=== PATIENT | male | born 1955 | race Caucasian/White ===

== ENCOUNTER 2021-10-18 06:07 | Inpatient (IN) | payer MEDICARE, MEDICAID ==
[2021-10-06 14:27] LABS: BASOPHILS % (AUTO) 0.7 % (0-1); EOSINOPHILS # (AUTO) 0.1 X10'3 (0-0.9); EOSINOPHILS % (AUTO) 1.7 % (0-6); LYMPHOCYTES # (AUTO) 1.6 X10'3 (1.1-4.8); LYMPHOCYTES % (AUTO) 34.1 % (21-51); MEAN CORPUSCULAR HEMOGLOBIN 30.7 PG (27.0-31.0); MEAN CORPUSCULAR HGB CONC 33.9 g/dL (33.0-36.5); MEAN CORPUSCULAR VOLUME 90.6 FL (78-98); MEAN PLATELET VOLUME 7.8 FL (7.4-10.4); MONOCYTES # (AUTO) 0.4 X10'3 (0-0.9); NEUTROPHILS # (AUTO) 2.5 X10'3 (1.8-7.7); NEUTROPHILS % (AUTO) 54.5 % (42-75); PRE OP HEMATOCRIT 43.4 % (42.0-52.0); PRE OP HEMOGLOBIN 14.7 g/dL (14.0-17.9); PRE OP PLATELET COUNT 189 X10'3 (140-440); RED BLOOD COUNT 4.79 X10'6 (4.70-6.10); RED CELL DISTRIBUTION WIDTH 14.7 % (11.5-14.5)
[2021-10-06 14:47] LABS: ALBUMIN 3.6 G/DL (3.4-5.0); ALBUMIN/GLOBULIN RATIO 0.9 (1.1-1.5); ALKALINE PHOSPHATASE 87 IU/L (46-116); BLOOD UREA NITROGEN 18 MG/DL (7-18); BUN/CREATININE RATIO 13.6 (5.4-32.0); CHLORIDE 104 MMOL/L (99-107); CREATININE 1.32 MG/DL (0.60-1.10); PRE OP ALT 25 U/L (30-65); PRE OP ANION GAP 12 (8-16); PRE OP AST 19 U/L (10-37); PRE OP BILIRUB, TOTAL 0.4 MG/DL (0.0-1.0); PRE OP GLUCOSE 90 MG/DL (70-104); PRE OP POTASSIUM 4.3 MMOL/L (3.4-5.1); PRE OP SODIUM 139 MMOL/L (135-145); TOTAL CARBON DIOXIDE 23.4 MMOL/L (24-32); TOTAL PROTEIN 7.5 G/DL (6.4-8.2); eGFR 54 ML/MIN
[~2021-10-18] VITALS: Ht 172.7 cm; Wt 92.6 kg
[2021-10-18] VITALS (16 sets, daily range): BP systolic 107–165; BP diastolic 51–86
[~2021-10-18 06:07] MED LIST: ALBU8HFA PO; BACL10TA2 PO; DOCU-170 PO; GABA300C PO; HYDR-3686 PO; HYDR-3972 PO; LEVO300T2 PO; TIOT18CA3 INH; TRAZ-251 PO; ceFAZolin inj. 2,000 MG in dextrose 5%-water 100 ML IV ONE; famotidine 20mg tablet PO ONE; ringers solution, lacted 1,000 ML IV SCH; tranexamic acid 650mg tablet PO ONE; vancomycin 1,500 MG in NS 300ml IV soln IV ONE
--- NOTE | 2021-10-18 06:30 | NUR ---
PT PREPARED FOR SURGERY. PT STATED HE DID SMOKE THIS MORNING BEFORE COMING TO THE HOSPITAL. PT IS VERY ANXIOUS AND COMPLAINS OF RIGHT SHOULDER PAIN OF A 7 PREOP. PT SAID HE DID REVIEW THE EDUCATIONAL DATA ON SHOULDER REPLACEMENT AND HAS NO QUESTIONS. HE USED THE HIBACLESN SOAP FOR 5 DAYS AND THE OINTMENT IN HIS NOSE FOR 5 DAYS. HE SAW HIS SURGEON ON MONDAY AND THEY REVIEWED HIS mrsa POSITIVE SCREENING AND THE WOUND ARE HIS ARM. PT HAS A SMALL CIRCULAR SCAB ON THE OPERATIVE ARM. AWARE. PT REQUESTING MEDS FOR NERVES. AWAITING ANESTHESIA. PT IS UNABLE TO LIFT RIGHT ARM. LIMITED MOBILITY IN RIGHT SHOULDER. CIRCULATION TO BOTH ARMS IS GOOD, PINK WARM AND DRY. RADIAL PULSES ARE PRESENT +2 BILATERALLY. DIRECTOR OF KNOWLEDGE MANAGEMENT ARE EQUAL BILATERALLY.
[2021-10-18] MEDS ORDERED: ketorolac trometh. 30mg/ml inj. ONE (06:41)
[2021-10-18] MEDS ORDERED: ROPIVAcaine 0.5% (5mg/ml) 30ml vial ONE ×2 (06:41→11:45)
[2021-10-18] MEDS ORDERED: midazolam 1 mg/ML 2ml injection ONE ×2 (08:25→08:38)
[2021-10-18] MEDS ORDERED: ondansetron/PF 4mg/2ml inj ONE (08:25)
[2021-10-18] MEDS ORDERED: meperidine/PF 25mg/ml syringe ONE (08:25)
[2021-10-18] MEDS ORDERED: fentaNYL/PF 50MCG/1 ML 2ML syringe ONE (08:38)
[2021-10-18] MEDS ORDERED: ringers solution, lacted 1,000 ML IV SCH (09:35)
[2021-10-18] MEDS ORDERED: ROPIVAcaine 0.2%/PF PUMP/bolus 545 ML INTERSCALE SCH (09:35)
[2021-10-18] MEDS ORDERED: ondansetron/PF 4mg/2ml inj IV PRN ×2 (09:35→11:10)
[2021-10-18] MEDS ORDERED: morphine 2 MG/ML inj. syringe IV PRN (09:35)
[2021-10-18] MEDS ORDERED: meperidine/PF 25mg/ml syringe IV PRN ×3 (09:35)
[2021-10-18] MEDS ORDERED: ROPIVAcaine 0.2% (10 MG/5 ML) BOLUS INJECTION INTERSCALE PRN (09:35)
[2021-10-18] MEDS ORDERED: proCHLORperazine 10 MG/2 ml inj IV PRN (09:35)
[2021-10-18] MEDS ORDERED: morphine 4 MG/ML inj SYRINge IV PRN (09:35)
[2021-10-18] MEDS ORDERED: ketamine 50mg/5ml syringe ONE (10:12)
--- NOTE | 2021-10-18 10:49 | NUR ---
Received from OR via , accompanied by Anesthesiologist DR MOELLER and report given by Anesthesiolgist.AWAKENS TO VOICE. VITALS STABLE. DRESSING DI. COLIN PAIN. RUE IN A SIMP,E SLING. FINGERS WARM AND PINK.
[2021-10-18] MEDS ORDERED: bisacodyl 10mg suppository rectal RC PRN (11:10)
[2021-10-18] MEDS ORDERED: naloxone 0.4 mg/ml inj IV PRN (11:10)
[2021-10-18] MEDS ORDERED: HYDROmorphone 1 mg/ml syringe IV PRN (11:10)
[2021-10-18] MEDS ORDERED: docusate sod 100mg capsule PO PRN (11:10)
[2021-10-18] MEDS ORDERED: HYDROmorphone inj. 0.5 MG/0.5 ML DISP.SYRIN IV PRN (11:10)
[2021-10-18] MEDS ORDERED: hydrOXYzine 25 MG tablet PO PRN (11:10)
[2021-10-18] MEDS ORDERED: baclofen 10mg tablet PO PRN (11:10)
[2021-10-18] MEDS ORDERED: diphenhydrAMINE 25mg capsule PO PRN ×2 (11:10)
[2021-10-18] MEDS ORDERED: oxyCODONE IR 5mg (immed. release) tablet PO PRN (11:10)
[2021-10-18] MEDS ORDERED: magnesium hydroxide 30ml (MOM) UD suspension PO PRN (11:10)
[2021-10-18] MEDS ORDERED: acetaminophen 325mg tablet PO PRN (11:10)
[2021-10-18] MEDS ORDERED: albuterol 2.5 MG/3 ML nebule NEB PRN (11:40)
--- NOTE | 2021-10-18 11:44 | NUR ---
Patient in room PAS IN 901. I have received report from Daryl CLARKE in recovery and had the opportunity to ask questions and will assume patient care when patient comes to the floor. .
[2021-10-18] MEDS ORDERED: propofol inj 20 ML IV ONE (11:45)
[2021-10-18] MEDS ORDERED: rocuronium 10mg/ml inj IV ONE (11:45)
[2021-10-18] MEDS ORDERED: acetaminophen 1,000mg/100ml IV 100 ML IV ONE (11:45)
[2021-10-18] MEDS ORDERED: dexamethasone sod phosphate 4mg/ml inj. ONE (11:45)
[2021-10-18] MEDS ORDERED: neostigmine methylsulfate 1 MG/ML 10ml vial ONE (11:45)
[2021-10-18] MEDS ORDERED: glycopyrrolate 0.2mg/ml inj ONE (11:45)
--- NOTE | 2021-10-18 11:49 | NUR ---
Report called to receiving nurse. Transferred via BED Belongings . Special Issues communicated to receiving nurse.AWAKE AND ORIENTED. VITALS STABLE. DRESSING DI. COLIN PAIN. TO ORTHO RM 4012O AT THIS TIME.
[2021-10-18] MEDS: gabapentin 300mg capsule PO SCH ×2 (13:01→21:03)
[2021-10-18] MEDS: acetaminophen 325mg tablet PO SCH ×2 (13:43→21:03)
[2021-10-18] MEDS: potassium cl 20mEq in 1/2 NS 1,000 ML IV SCH ×2 (13:45→19:10)
[2021-10-18] MEDS: ceFAZolin/D5W- 1GM premix 50 ML IV SCH (15:57)
[2021-10-18] MEDS: ipratropium 0.5 MG/2.5ML nebule IH SCH ×2 (16:05→19:51)
--- NOTE | 2021-10-18 18:07 | NUR ---
Problems reprioritized. Patient report given, questions answered & plan of care reviewed with Enmanuel CLARKE.
--- NOTE | 2021-10-18 18:15 | NUR ---
Problems reprioritized. Patient report given, questions answered & plan of care reviewed with Hoa CLARKE.
--- NOTE | 2021-10-18 18:40 | NUR ---
Patient in room ORTHO 4014. I have received report from Makenna CLARKE and had the opportunity to ask questions and assume patient care.
[2021-10-18] MEDS ORDERED: vancomycin/NS 1 GM ADD-VANTAGE 250 ML IV SCH (20:00)
[2021-10-18] MEDS ORDERED: sennosides 8.6mg tablet PO SCH (21:00)
[2021-10-18] MEDS ORDERED: traZODone 50mg tablet PO SCH (21:00)
[2021-10-18] MEDS: oxyCODONE IR 5mg (immed. release) tablet PO PRN (21:13)
[2021-10-19] MEDS: ceFAZolin/D5W- 1GM premix 50 ML IV SCH (00:12)
[2021-10-19] MEDS: potassium cl 20mEq in 1/2 NS 1,000 ML IV SCH ×2 (00:18→11:10)
[2021-10-19 02:00] VITALS: BP 115/55
[2021-10-19] MEDS: ipratropium 0.5 MG/2.5ML nebule IH SCH ×2 (02:00→07:40)
[2021-10-19] MEDS: acetaminophen 325mg tablet PO SCH ×2 (02:47→07:10)
[2021-10-19] MEDS: oxyCODONE IR 5mg (immed. release) tablet PO PRN (02:52)
--- NOTE | 2021-10-19 03:03 | NUR ---
Patient refused to ambulate before midnight as he was watching basket ball (was supposed to call me when finished). He then had fallen asleep and did not want to be disturbed. Asked each time that I went in room and he has refused. patient said he will walk in the AM.
[2021-10-19 06:00] VITALS: BP 104/54
--- NOTE | 2021-10-19 06:34 | NUR ---
Patient in room ORTHO 4014. I have received report from Hoa CLARKE and had the opportunity to ask questions and assume patient care.
--- NOTE | 2021-10-19 06:40 | NUR ---
Problems reprioritized. Patient report given, questions answered & plan of care reviewed with Makenna CLARKE.
[2021-10-19] MEDS ORDERED: levoTHYROXINE 100mcg tablet PO SCH (07:00)
[2021-10-19] MEDS: gabapentin 300mg capsule PO SCH ×2 (07:09→13:45)
[2021-10-19] MEDS ORDERED: aspirin 325mg tablet PO SCH (08:30)
[2021-10-19 08:47] LABS: BASOPHILS % (AUTO) 0.4 % (0-1); EOSINOPHILS # (AUTO) 0.1 X10'3 (0-0.9); EOSINOPHILS % (AUTO) 2.5 % (0-6); HEMATOCRIT 40.4 % (42.0-52.0); HEMOGLOBIN 13.7 g/dl (14.0-17.9); LYMPHOCYTES # (AUTO) 1.1 X10'3 (1.1-4.8); LYMPHOCYTES % (AUTO) 18.1 % (21-51); MEAN CORPUSCULAR HGB CONC 33.8 g/dL (33.0-36.5); MEAN CORPUSCULAR VOLUME 91.6 FL (78-98); MEAN PLATELET VOLUME 8.5 FL (7.4-10.4); MONOCYTES # (AUTO) 0.4 X10'3 (0-0.9); MONOCYTES % (AUTO) 6.3 % (2-12); NEUTROPHILS # (AUTO) 4.3 X10'3 (1.8-7.7); NEUTROPHILS % (AUTO) 72.7 % (42-75); PLATELET COUNT 179 X10'3 (140-440); RED BLOOD COUNT 4.41 X10'6 (4.70-6.10); RED CELL DISTRIBUTION WIDTH 14.9 % (11.5-14.5); WHITE BLOOD COUNT 5.9 X10'3 (4.5-11.0)
[2021-10-19 09:25] LABS: ANION GAP 5 (8-16); CHLORIDE 109 MMOL/L (99-107); POTASSIUM 4.5 MMOL/L (3.5-5.1); SODIUM 140 MMOL/L (135-145); TOTAL CARBON DIOXIDE 25.9 MMOL/L (24-32)
[2021-10-19 10:00] VITALS: BP 113/71
--- NOTE | 2021-10-19 13:15 | NUR ---
Joint surgery consult: Pt s/p R shoulder surgery this admit per EMR. Pt seen by JEF for written/verbal high protein diet ed w/ RD contact information provided. JEF encouraged pt to contact dietitian's office if further questions/concerns. Addendum: 10/19/21 at [address] Amended: Links added.
--- NOTE | 2021-10-19 14:09 | NUR ---
Patient discharge instructios reviewed with patient and patient verbalized understanding. Patients IV dc'd cannula intact. Patients states he has all belongings. Sent home with full ON Q ball attached. Patients Powder packs sent home with patient. 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
[2021-10-19] MEDS ORDERED: celeCOXIB 100mg capsule PO SCH (20:00)
[2021-10-20] MEDS ORDERED: acetaminophen 325mg tablet PO PRN (11:10)
== END 2021-10-19 14:10 | disposition home or self-care (01) | DRG 483 ==
LOC: PAS IN 06:07 → ORTHO 4S 12:15
PROVIDERS: ADMIT Orthopaedic Surgery; ATTEND Orthopaedic Surgery
PROC: 0LS30ZZ Reposition Right Upper Arm Tendon, Open Approach (ICD-10-PCS; 2021-10-18)
PROC: 3E0T3BZ Introduction of Anesthetic Agent into Peripheral Nerves and Plexi, Percutaneous Approach (ICD-10-PCS; 2021-10-18)
PROC: 0RRJ00Z Replacement of Right Shoulder Joint with Reverse Ball and Socket Synthetic Substitute, Open Approach (ICD-10-PCS; principal; 2021-10-18 09:00)
DX: M19.011 Primary osteoarthritis, right shoulder (principal); M65.811 Other synovitis and tenosynovitis, right shoulder; M75.101 Unspecified rotator cuff tear or rupture of right shoulder, not specified as traumatic
CPT/HCPCS: 36415; 80051; 80053; 82948; 84443; 85025; 87081; 94640; 94760; 97110; 97161; 97530; A4215; A4565; A4618; A7000; C1713; C1776; G0378; J0131; J0690; J1100; J1885; J2175; J2250; J2405; J2704; J2710; J2795; J3010; J3370; J3480; J3490; J7040; J7060; J7120; Q0177; U0003; U0005

== ENCOUNTER → 2022-12-09 | Outpatient (CLI) | payer MEDICARE, MEDICAID ==
[~2022-12-09] MED LIST changes: -ceFAZolin inj. 2,000 MG in dextrose 5%-water 100 ML IV ONE; -famotidine 20mg tablet PO ONE; -ringers solution, lacted 1,000 ML IV SCH; -tranexamic acid 650mg tablet PO ONE; -vancomycin 1,500 MG in NS 300ml IV soln IV ONE
== END | disposition home or self-care (01) ==
LOC: RAD 07:39
PROVIDERS: ATTEND Student in an Organized Health Care Education/Training Program
DX: R22.31 Localized swelling, mass and lump, right upper limb (principal); M79.89 Other specified soft tissue disorders
CPT/HCPCS: 76881

== ENCOUNTER 2023-05-01 21:02 | Emergency (ER) | payer MEDICARE, MEDICAID ==
[~2023-05-01] VITALS: Ht 175.3 cm; Wt 69.1 kg
[~2023-05-01 21:02] MED LIST changes: -ALBU8HFA PO; -BACL10TA2 PO; -GABA300C PO; -HYDR-3686 PO; -HYDR-3972 PO; -TIOT18CA3 INH
[2023-05-01] MEDS ORDERED: iohexol 300mg/ml 100ml inj. ONE (21:48)
[2023-05-01 22:22] LABS: BASOPHILS % (AUTO) 0.7 % (0-1); EOSINOPHILS # (AUTO) 0.4 X10'3 (0-0.9); EOSINOPHILS % (AUTO) 7.2 % (0-6); HEMATOCRIT 39.7 % (42.0-52.0); HEMOGLOBIN 13.5 g/dl (14.0-17.9); LYMPHOCYTES # (AUTO) 1.4 X10'3 (1.1-4.8); LYMPHOCYTES % (AUTO) 27.2 % (21-51); MEAN PLATELET VOLUME 7.1 FL (7.4-10.4); MONOCYTES # (AUTO) 0.3 X10'3 (0-0.9); MONOCYTES % (AUTO) 6.4 % (2-12); NEUTROPHILS % (AUTO) 58.5 % (42-75); PLATELET COUNT 202 X10'3 (140-440); RED BLOOD COUNT 4.36 X10'6 (4.70-6.10); RED CELL DISTRIBUTION WIDTH 14.8 % (11.5-14.5); WHITE BLOOD COUNT 5.1 X10'3 (4.5-11.0)
[2023-05-01 22:31] LABS: ALANINE AMINOTRANSFERASE 11 U/L (12-78); ALBUMIN 3.1 G/DL (3.4-5.0); ALBUMIN/GLOBULIN RATIO 0.9 (1.1-1.5); ALKALINE PHOSPHATASE 83 IU/L (46-116); ANION GAP 6 (8-16); ASPARTATE AMINO TRANSFERASE 22 U/L (10-37); BILIRUBIN,TOTAL 0.5 MG/DL (0.1-1.0); BLOOD UREA NITROGEN 11 MG/DL (7-18); BUN/CREATININE RATIO 8.5 (10.0-20.0); CALCIUM 8.9 MG/DL (8.5-10.1); CHLORIDE 102 MMOL/L (99-107); CREATININE 1.29 MG/DL (0.60-1.10); GLUCOSE 90 MG/DL (70-104); POTASSIUM 3.6 MMOL/L (3.5-5.1); SODIUM 135 MMOL/L (135-145); TOTAL CARBON DIOXIDE 26.8 MMOL/L (24-32); TOTAL PROTEIN 6.6 G/DL (6.4-8.2); eCRCL 55 ML/MIN; eGFR 56 ML/MIN
[2023-05-01] MEDS ORDERED: oxyCODONE/APAP 10/325mg tablet PO ONE (23:25)
[2023-05-02] MEDS ORDERED: OXYC-149 PO (00:19)
[2023-05-02] MEDS ORDERED: IBUP-1984 PO (00:19)
[2023-05-02] MEDS ORDERED: morphine 2 MG/ML inj. syringe IV ONE (00:30)
[2023-05-02] MEDS ORDERED: ondansetron 4mg rapidly disintigrating tab PO ONE (00:30)
[2023-05-02 01:00] VITALS: BP 130/78; PULSE 71; TEMP 97.6; O2SAT 99
[2023-05-02] MEDS ORDERED: morphine 4 MG/ML inj SYRINge IV ONE ×2 (01:05→01:15)
[2023-05-02] MEDS ORDERED: morphine 10mg/ml inj. IM ONE (01:20)
[2023-05-02 01:30] VITALS: RESP 20
== END 2023-05-02 01:37 | disposition home or self-care (01) ==
LOC: ER 21:03
DX: L76.32 Postprocedural hematoma of skin and subcutaneous tissue following other procedure (principal); M25.512 Pain in left shoulder; Z79.899 Other long term (current) drug therapy
CPT/HCPCS: 36415; 73030; 73200; 80053; 85025; 96372; 99285; J2274; A4565; J3490; Q9967

== ENCOUNTER 2023-06-20 02:41 | Emergency (ER) | payer MEDICARE, MEDICAID ==
[~2023-06-20] VITALS: Ht 175.3 cm; Wt 63.0 kg
[~2023-06-20 02:41] MED LIST changes: +OXYC-149 PO
[2023-06-20] MEDS ORDERED: oxyCODONE/APAP 10/325mg tablet PO ONE (02:55)
[2023-06-20] MEDS ORDERED: baclofen 10mg tablet PO PRN (02:55)
[2023-06-20] MEDS ORDERED: HYDROmorphone 1 mg/ml syringe IV ONE (03:15)
[2023-06-20] MEDS ORDERED: OXYC-149 PO (04:06)
[2023-06-20 05:17] VITALS: BP 111/75; PULSE 72; RESP 16; TEMP 98; O2SAT 99
== END 2023-06-20 06:19 | disposition home or self-care (01) ==
LOC: ER 02:42
DX: S42.202A Unspecified fracture of upper end of left humerus, initial encounter for closed fracture (principal); J44.9 Chronic obstructive pulmonary disease, unspecified; E03.9 Hypothyroidism, unspecified; Z79.899 Other long term (current) drug therapy; W19.XXXA Unspecified fall, initial encounter; Y93.89 Activity, other specified; Y92.89 Other specified places as the place of occurrence of the external cause; Y99.8 Other external cause status
CPT/HCPCS: 29105; 73030; 73060; 96374; 99284; J1170; A4565